=== PATIENT | female | born 1970 | race Caucasian/White ===

== ENCOUNTER 2021-02-01 01:13 | Emergency (ER) | payer OTHER ==
[2021-02-01 02:27] LABS: RED BLOOD COUNT 4.44 M/UL (4.00-5.10); WHITE BLOOD COUNT 6.1 K/UL (4.5-11.0)
[2021-02-01 02:47] LABS: BUN/CREATININE RATIO 26 (0-10)
== END 2021-02-01 03:45 | disposition home or self-care (01) ==
LOC: ER1 01:13
PROVIDERS: Family Medicine
DX: R07.89 Other chest pain (principal); F43.9 Reaction to severe stress, unspecified; F17.200 Nicotine dependence, unspecified, uncomplicated
CPT/HCPCS: 80053; 82550; 82553; 83874; 84484; 85025; 93005; 99285

== ENCOUNTER 2021-02-04 16:12 | Emergency (ER) | payer OTHER | END 2021-02-04 17:14 | disposition home or self-care (01) | LOC: ER1 16:12 | DX: F15.129 Other stimulant abuse with intoxication, unspecified (principal); R21 Rash and other nonspecific skin eruption | CPT/HCPCS: 96374; 99282; J1100 ==

== ENCOUNTER 2021-07-01 11:09 | Observation (INO) | payer OTHER ==
[~2021-07-01] VITALS: Ht 162.6 cm; Wt 113.4 kg
[2021-07-01 12:43] LABS: HEMOGLOBIN 12.3 gm/dl (12.3-15.3); RED BLOOD COUNT 4.27 M/UL (4.00-5.10); WHITE BLOOD COUNT 4.6 K/UL (4.5-11.0)
[2021-07-01 13:06] LABS: BUN/CREATININE RATIO 27 (0-10)
[2021-07-01] MEDS ORDERED: no known home meds (19:55)
[2021-07-02 05:42] LABS: HEMOGLOBIN 13.2 gm/dl (12.3-15.3); RED BLOOD COUNT 4.58 M/UL (4.00-5.10); WHITE BLOOD COUNT 4.7 K/UL (4.5-11.0)
[2021-07-02 06:02] LABS: BUN/CREATININE RATIO 21 (0-10)
[2021-07-03 07:48] LABS: HEMOGLOBIN 13.7 gm/dl (12.3-15.3); RED BLOOD COUNT 4.89 M/UL (4.00-5.10); WHITE BLOOD COUNT 4.6 K/UL (4.5-11.0)
[2021-07-03 08:05] LABS: BUN/CREATININE RATIO 18 (0-10)
[2021-07-03] MEDS ORDERED: CRESTOR 10 MG T10 MG PO (12:08)
[2021-07-03] MEDS ORDERED: ASPIRIN EC81 MG PO (12:08)
[2021-07-04 13:29] LABS: CRYPTOCOCCUS NEOFORMANS/GATTII Not Detected (Negative); CYTOMEGALOVIRUS Not Detected (Negative); ENTEROVIRUS Not Detected (Negative); ESCHERICHIA COLI K1 Not Detected (Negative); HAEMOPHILUS INFLUENZAE Not Detected (Negative); HERPES SIMPLEX VIRUS 1 Not Detected (Negative); HERPES SIMPLEX VIRUS 2 Not Detected (Negative); HUMAN HERPESVIRUS 6 Not Detected (Negative); HUMAN PARECHOVIRUS Not Detected (Negative); LISTERIA MONOCYTOGENES Not Detected (Negative); NEISERRIA MENINGITIDIS Not Detected (Negative); STREPTOCOCCUS AGALACTIAE Not Detected (Negative); STREPTOCOCCUS PNEUMONIAE Not Detected (Negative); VARICELLA ZOSTER VIRUS Not Detected (Negative)
[2021-07-04 14:01] LABS: GLUCOSE,CSF 67 mg/dL (50-80); TOTAL PROTEIN,CSF 34 mg/dL (20-45)
[2021-07-04 14:12] LABS: RBC (AUTOMATED) 1700 10^6 (0); WBC (AUTOMATED 19 10^3 (0-5)
[2021-07-04 14:13] LABS: RBC (AUTOMATED) 100 10^6 (0); WBC (AUTOMATED 7 10^3 (0-5)
[2021-07-05 08:14] LABS: RHEUMATOID ARTHRITIS FACTOR <10.0 IU/mL (0.0-13.9)
[2021-07-05 12:14] LABS: ANTI-CENTROMERE B ANTIBODIES <0.2 AI (0.0-0.9); ANTI-DSDNA ANTIBODIES 1 IU/mL (0-9); ANTI-JO-1 <0.2 AI (0.0-0.9); ANTICHROMATIN ANTIBODIES <0.2 AI (0.0-0.9); ANTIRIBOSOMAL P ANTIBODIES <0.2 AI (0.0-0.9); ANTISCLERODERMA-70 ANTIBODIES 0.3 AI (0.0-0.9); RNP ANTIBODIES 0.5 AI (0.0-0.9); SJOGREN'S ANTI-SS-A 0.2 AI (0.0-0.9); SJOGREN'S ANTI-SS-B <0.2 AI (0.0-0.9); SMITH ANTIBODIES <0.2 AI (0.0-0.9); SMITH/RNP ANTIBODIES <0.2 AI (0.0-0.9)
[2021-07-06 14:13] LABS: CSF IGG INDEX 0.6 (0.0-0.7); IMMUNOGLOBULIN G, QN, SERUM 985 mg/dL (586-1602)
== END 2021-07-04 18:48 | disposition home or self-care (01) ==
LOC: ER1 11:09 → MED SURG 4 16:49 → CDU 16:49 → MED SURG 4 20:30
PROVIDERS: Physician Assistant; Psychiatry & Neurology Neurology; ADMIT Internal Medicine
PROC: 009U3ZX Drainage of Spinal Canal, Percutaneous Approach, Diagnostic (ICD-10-PCS; principal; 2021-07-04)
DX: G45.9 Transient cerebral ischemic attack, unspecified (principal); F17.210 Nicotine dependence, cigarettes, uncomplicated; Z20.822 Contact with and (suspected) exposure to COVID-19
CPT/HCPCS: ECHO; 36415; 70450; 70553; 71045; 80048; 80053; 80061; 80307; 82040; 82550; 82553; 82607; 82784; 82945; 83036; 83516; 83735; 83873; 83874; 83916; 84157; 84439; 84443; 84484; 85025; 85027; 85610; 85652; 85730; 86225; 86431; 87070; 87081; 87205; 87483; 87880; 89051; 93005; 93306; 93880; 99285; A9577; G0378; G0480; U0002

== ENCOUNTER 2021-11-02 16:38 | Emergency (ER) | payer SELFPAY ==
[~2021-11-02 16:38] MED LIST: ASPIRIN EC81 MG PO; CRESTOR 10 MG T10 MG PO; no known home meds
[2021-11-02 17:20] LABS: HEMOGLOBIN 14.4 gm/dl (12.3-15.3); RED BLOOD COUNT 5.07 M/UL (4.00-5.10)
[2021-11-02 17:45] LABS: BUN/CREATININE RATIO 19 (0-10)
== END 2021-11-02 18:17 | disposition left against medical advice (07) ==
LOC: ER1 16:38
PROVIDERS: Physician Assistant
DX: R06.02 Shortness of breath (principal); F17.200 Nicotine dependence, unspecified, uncomplicated
CPT/HCPCS: 71045; 80053; 82550; 82553; 84484; 85025; 93005; 99283